=== PATIENT | male | born 1960 | race Caucasian/White ===

== ENCOUNTER 2016-12-20 10:17 | Emergency (ER) | payer SELFPAY ==
--- NOTE | ~2016-12-20 | ER ---
PATIENT'S NAME: YVONNE JONES [facility] AGE: 56 Y [address] ROOM: [place] [id number] LOCATION: ED ADMIT DATE: 12/20/2016 ER/Outpatient Report DISCHARGE DATE: 12/20/2016 FAMILY PHYSICIAN: Khari West MD ATTENDING PHYSICIAN: Jaard Addison TIME SEEN: 1020 hours. CHIEF COMPLAINT: Right hand weakness and numbness. HISTORY OF PRESENT ILLNESS: The patient is a 56-year-old male who said this morning when he woke up, he had decreased function in his right hand. He denies any numbness and tingling sensation. Denies any injury or repetitive motion. The patient also has had no complaints of a headache; however, he did state, about 3 days ago, he had some neck pain which he thought about going to see a chiropractor. ALLERGIES: NO MEDICINAL ALLERGIES. CURRENT MEDICATIONS: See his copied list, which was reviewed. PAST MEDICAL HISTORY: Includes gout. He was diagnosed with testicular cancer about 4 years ago which required radiation and left orchiectomy. Since then, he has been cancer- free. SOCIAL HISTORY: He denies tobacco use, but he does drink 4 to 5 beers a day on a regular basis. FAMILY HISTORY: There is a history of aneurysms. REVIEW OF SYSTEMS: GENERAL: Today, no fevers. HEAD AND EENT: No complaints of headache. He denies any neck discomfort at this time. RESPIRATORY: No shortness of breath. No cough. CARDIOVASCULAR: No chest pain. No palpitations or heart irregularity. GASTROINTESTINAL: No weight loss. No change in bowel habits. GENITOURINARY: No dysuria. PATIENT'S NAME: YVONNE JONES [facility] AGE: 56 Y [address] ROOM: [place] [id number] LOCATION: ED ADMIT DATE: 12/20/2016 ER/Outpatient Report DISCHARGE DATE: 12/20/2016 FAMILY PHYSICIAN: Khari West MD ATTENDING PHYSICIAN: Jarad Addison MUSCULOSKELETAL: Denies any injury or pain in his right elbow or hand. NEUROLOGIC: Includes the weakness involving his right hand to the point where he is unable to lift his right hand. There is some slight tingling present. PHYSICAL EXAMINATION: VITAL SIGNS: Blood pressure is 139/85. He has a temperature of 98. His respiratory rate is 16. His pulse is 79 and O2 saturation is 95% on room air. GENERAL APPEARANCE: Alert, in no obvious distress. HEAD AND EENT: His sclerae are clear. His buccal membranes moist. LUNGS: Clear. HEART: Rhythm appears regular. MUSCULOSKELETAL: No obvious deformities. NEUROLOGIC: On exam of his right arm, he has good strength in his biceps and triceps. He is able to abduct and adduct his arm without any difficulty. There is no significant weakness in his upper arm. Right hand is in a kind of dorsal position. He has very little movement as far as able to dorsiflex his right hand. He has some movement in his fingers. The patient has good radial pulse. He has good capillary refill. LABORATORY AND X-RAY DATA: Imaging Done: CT of his head was normal. Lab Work: CMS: Calcium slightly low at 8.2. Otherwise, normal. Troponin was less than 0.040. CBC: White count was low at 3.2 as well as his red cell count at 3.99, platelets were within normal range. PTT was 28, prothrombin time 9.5, and his INR was 0.91. EKG showed a sinus rhythm. No acute ischemic changes. ASSESSMENT: 1. Suspected right wrist drop. 2. Questionable alcohol abuse. 3. History of testicular cancer with left orchiectomy. PLAN: I did discuss the patient's condition with Dr. Addison, who also saw the patient. I also talked with Dr. Mclean, neurologist, and his impression was a nerve impingement possibly of the radial nerve. His advice was just follow up in about 3 to 4 days. He did not suggest any steroids, antiinflammatory, or bracing. This was discussed with the patient, who agreed. The patient will follow up with Dr. Mclean next week. PATIENT'S NAME: YVONNE JONES [facility] AGE: 56 Y [address] ROOM: [place] [id number] LOCATION: ED ADMIT DATE: 12/20/2016 ER/Outpatient Report DISCHARGE DATE: 12/20/2016 FAMILY PHYSICIAN: Khari West MD ATTENDING PHYSICIAN: Jarad Addison PA FOR JARAD ADDISON MD [id number] /[id number] d: 12/20/16 1821 t: 12/30/16 1056, OUTPATIENT REPORT
[2016-12-20 10:53] LABS: BASOPHIL % 1.3 %; EOSINOPHIL # 0.3 K/uL (0.0-0.5); EOSINOPHIL % 7.9 %; HEMATOCRIT 38.1 % (37.0-53.0); HEMOGLOBIN 13.1 g/dL (12.0-17.0); IMMATURE GRANULOCYTE % 0.3 %; LYMPHOCYTE % 32.5 %; MCH 32.8 pg (27.0-34.0); MCHC 34.4 gm/dL (32.0-36.5); MCV 95.5 fl (83.0-98.0); MONOCYTE # 0.3 K/uL (0.0-1.0); MONOCYTE % 10.4 %; MPV 8.4 fl (9.4-12.4); NEUTROPHIL # (ANC) 1.5 K/uL (1.4-9.0); NEUTROPHIL % 47.6 %; NRBC % 0 /100WBC (0-0.00); PLATELET COUNT 221 K/uL (150-450); RBC 3.99 M/uL (4.00-6.00); RDW-CV 12.5 % (11.9-14.6); WBC 3.2 K/uL (4.0-11.0)
[2016-12-20 11:00] LABS: INR - (THERAPEUTIC) 0.91 (0.92-1.07); PROTIME 9.5 SECONDS (9.8-11.4); PTT 28 SECONDS (25-32)
[2016-12-20 11:15] LABS: ALBUMIN 3.7 gm/dL (3.5-5.0); ALK PHOS 44 IU/L (33-138); ALT 29 IU/L (12-78); BLOOD UREA NITROGEN 8 mg/dL (6-24); CALCIUM 8.2 mg/dL (8.5-10.5); CHLORIDE 107 mMol/L (96-110); CO2 22 mMol/L (22-32); CREATININE 0.7 mg/dL (0.6-1.3); PHOSPHORUS 2.6 mg/dL (2.5-4.9); SODIUM 139 mMol/L (135-145); TOTAL BILIRUBIN 0.3 mg/dL (0.0-1.5); TOTAL PROTEIN 7.2 g/dL (6.0-8.4)
[2016-12-20 11:19] LABS: ANION GAP 14.1 (10.0-19.0); AST 29 IU/L (10-40); POTASSIUM 4.1 mMol/L (3.7-5.1)
== END 2016-12-20 11:25 | disposition disaster alternative care site (69) ==
LOC: GMED 10:17
PROVIDERS: Physician Assistant Medical
DX: R29.898 Other symptoms and signs involving the musculoskeletal system (principal); R20.0 Anesthesia of skin; M10.9 Gout, unspecified; Z85.47 Personal history of malignant neoplasm of testis; Z90.79 Acquired absence of other genital organ(s); Z79.899 Other long term (current) drug therapy

== ENCOUNTER → 2016-12-24 | Outpatient (CLI) | payer SELFPAY | END | disposition disaster alternative care site (69) | LOC: GRAD 10:11 | DX: G83.20 Monoplegia of upper limb affecting unspecified side (principal) | CPT/HCPCS: Q9967 ==